=== PATIENT | male | born 1945 | race Caucasian/White ===

== ENCOUNTER → 2022-04-03 | Outpatient (CLI) | payer MEDICARE, BC, OTHER ==
--- NOTE | 2022-04-03 13:46 | CT ---
EXAMINATION TYPE: CT brain wo con DATE OF EXAM: 04/03/2022 COMPARISON: None HISTORY: Cerebrovascular disease CT DLP: [id number] mGycm Automated exposure control for dose reduction was used. FINDINGS: There are changes of chronic sinusitis. Mastoid air cells are clear with minimal left-sided mastoidit is. 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 Orbits are symmetric. Craniocervical junction maintained. Craniocervical junction maintained. Ventricles and basal cisterns and sulci overlying convexities compatible with mild degenerative change. Faint low attenuation in t he white matter nonspecific but most typical of remote ischemic white matter change. No acute hemorrh age or mass effect. 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 NO ACUTE PROCESS.
== END | disposition home or self-care (01) ==
LOC: RADCTMAIN 12:38
PROVIDERS: ATTEND Psychiatry & Neurology Neurology
DX: I67.82 Cerebral ischemia (principal)
CPT/HCPCS: 70450